=== PATIENT | female | born 1985 | race Caucasian/White ===

== ENCOUNTER 2016-09-09 07:39 | Day surgery (SDC) | payer OTHER ==
[~2016-09-09 07:39] MED LIST: IV START KIT ONE; LACTATED RINGERS 1,000 ML ONE
[2016-09-09] MEDS ORDERED: CEFAZOLIN SODIUM 2 GRAM PREMIX 100 ML IV ONE (09:02)
[2016-09-09] MEDS ORDERED: LIDOCAINE 1% 2 ML VIAL ID PRN (09:03)
[2016-09-09] MEDS ORDERED: CEFAZOLIN SODIUM 2 GRAM DUPLEX 2 G in Premix (D5W) 50 ml 1 EACH IV PRN (09:03)
[2016-09-09] MEDS ORDERED: EPIDURAL PROCEDURE TRAY ONE (09:07)
[2016-09-09] MEDS ORDERED: BUPIVACAINE 0.75% SPINAL AMPUL 2 ML ONE (09:07)
[2016-09-09] MEDS ORDERED: MORPHINE SULFATE (DURAMORPH) 1 MG/ML 10ML AMP ONE (09:13)
[2016-09-09] MEDS ORDERED: PROPOFOL 60 ML IV ONE (09:13)
[2016-09-09] MEDS ORDERED: MIDAZOLAM HCL 5 MG/5 ML VIAL ONE (09:13)
[2016-09-09] MEDS ORDERED: LIDOCAINE 2% (PRES FREE) 5 ML VIAL ONE (09:13)
[2016-09-09] MEDS ORDERED: FENTANYL 100 MCG/2 ML VIAL ONE ×2 (09:14→10:56)
[2016-09-09] MEDS ORDERED: LACTATED RINGERS 1,000 ML IV SCH ×2 (09:15→10:30)
[2016-09-09] MEDS ORDERED: PROPOFOL 20 ML IV ONE ×3 (10:17)
[2016-09-09] MEDS ORDERED: EPHEDRINE SULFATE 50 MG/ML 1ML VIAL IV PRN (10:21)
[2016-09-09] MEDS ORDERED: NALOXONE HCL 0.4 MG/ML VIAL IV PRN ×2 (10:21→10:23)
[2016-09-09] MEDS ORDERED: HYDROMORPHONE HCL 1 MG/ML SYRINGE IV PRN (10:21)
[2016-09-09] MEDS ORDERED: ATROPINE SULFATE 0.4 MG/1 ML VIAL IV PRN (10:23)
[2016-09-09] MEDS ORDERED: ONDANSETRON 4 MG/2ML 2 ML VIAL IV PRN ×2 (10:23→13:15)
[2016-09-09] MEDS ORDERED: PROMETHAZINE HCL 25 MG/ML VIAL IM PRN (10:23)
[2016-09-09] MEDS ORDERED: HYDROMORPHONE HCL 1 MG/ML SYRINGE ONE ×2 (10:40→11:37)
[2016-09-09] MEDS ORDERED: ONDANSETRON 4 MG/2ML 2 ML VIAL ONE (10:41)
[2016-09-09] MEDS: HYDROMORPHONE HCL 1 MG/ML SYRINGE IV PRN ×4 (10:47→11:59)
[2016-09-09] MEDS: FENTANYL 100 MCG/2 ML VIAL IV PRN ×4 (10:58→12:29)
[2016-09-09] MEDS ORDERED: KETOROLAC TROMETHAMINE 30 MG/ML 1 ML VIAL ONE (11:03)
[2016-09-09] MEDS: KETOROLAC TROMETHAMINE 30 MG/ML 1 ML VIAL IV PRN ×2 (11:05→17:33)
--- NOTE | 2016-09-09 12:08 | OP ---
Kiana Sheridan DATE OF SURGERY: 09/09/2016 SURGEON: Patrick Craig MD. TABLE SAW OPERATOR SURGEON: Vita Morales DO. PREOPERATIVE DIAGNOSES: Menorrhagia and dysmenorrhea. POSTOPERATIVE DIAGNOSES: Menorrhagia and dysmenorrhea. OPERATION: Vaginal hysterectomy. ANESTHESIA: Spinal. FINDINGS: Uterus was of normal size. Fallopian tubes and ovaries appeared normal. TECHNICAL PROCEDURE: After induction of satisfactory spinal anesthesia the patient was placed in the supine lithotomy position, prepped and draped in the usual fashion. A weighted speculum was and the cervix was grasped with a double tooth tenaculum. The cul-de-sac was entered posteriorly using Deutsch scissors. The vaginal cuff was then incised circumferentially at this level. The bladder was advanced cephalad and the vesicouterine peritoneum was identified and incised with the Deutsch scissors and a Alberto retractor placed anteriorly. The right uterosacral ligament was clamped with a Karla clamp, divided, and suture ligated with 0 Vicryl. The same procedure was repeated on the left. The left cardinal ligament was clamped with a Karla clamp, divided, and suture ligated with 0 Vicryl. The same procedure was repeated on the right. The right uterine artery was clamped with a Karla clamp, divided and suture ligated with 0 Vicryl. The same procedure was repeated on the left. The left round ligament was clamped with a Karla clamp, divided and suture ligated with 0 Vicryl. The same procedure was repeated on the right. The right uteroovarian ligament and Fallopian tube were crossed clamped with a Karla clamp, clamped, and divided. The same procedure was repeated on the left thus removing the uterus. The pedicles thus created were sutured ligated with 0 Vicryl. When hemostasis in the pedicles was reassured the pedicles were closed with a purse string suture of 0 Vicryl. The vaginal cuff was then closed from side to side using interrupted figure of eight sutures of 0 Vicryl. The patient tolerated the procedure and left the operating room awake and in good condition. There were no complications. Instrument, needle, and sponge counts were correct. Estimated blood los was 100 mL. There was no blood replacement. Specimens removed were the uterus. JOB: [id number]
[2016-09-09] MEDS ORDERED: MAGNESIUM HYDROXIDE/AL HYDROX 30 ML UDCUP PO PRN (13:15)
[2016-09-09] MEDS ORDERED: CLONAZEPAM 0.5 MG TABLET PO PRN (13:15)
[2016-09-09] MEDS ORDERED: ACETAMINOPHEN 325 MG TABLET PO PRN (13:15)
[2016-09-09] MEDS ORDERED: MAG HYDROX/AL HYDROX/SIMETH 30 ML UDCUP PO PRN (13:15)
[2016-09-09] MEDS ORDERED: DOCUSATE SODIUM 100 MG CAPSULE PO PRN (13:15)
[2016-09-09] MEDS ORDERED: ONDANSETRON 4 MG ODT TAB PO PRN (13:15)
[2016-09-09] MEDS ORDERED: BLISTEX LIPSTICK 1 EACH TP PRN (13:15)
[2016-09-09] MEDS ORDERED: RIZATRIPTAN BENZOATE 5 MG PO PRN (13:15)
[2016-09-09] MEDS ORDERED: DIPHENHYDRAMINE HCL 50 MG/1 ML VIAL IV PRN (13:15)
[2016-09-09] MEDS ORDERED: MENTHOL/CETYLPYRD 1 EACH LOZENGE PO PRN (13:15)
[2016-09-09] MEDS: OXYCODONE/ACETAMINOPHEN 5/325 MG TABLET PO PRN ×3 (13:34→19:50)
[2016-09-09] MEDS: D5 1/4NS with 20 mEq KCL 1,000 ML IV SCH ×4 (13:46→21:16)
[2016-09-09] MEDS ORDERED: PUMP TUBING ONE ×2 (14:17→17:07)
[2016-09-09] MEDS ORDERED: LORAZEPAM 2 MG/ML 1ML SDV IV ONE (15:11)
[2016-09-09 18:02] VITALS: BMI 31.6
[2016-09-09] MEDS ORDERED: ZOLPIDEM TARTRATE 5 MG TABLET PO SCH (21:00)
[2016-09-10] MEDS: OXYCODONE/ACETAMINOPHEN 5/325 MG TABLET PO PRN ×3 (00:09→08:42)
[2016-09-10] MEDS: D5 1/4NS with 20 mEq KCL 1,000 ML IV SCH ×2 (04:00→06:51)
[2016-09-10 06:30] LABS: HEMATOCRIT 24.3 % (37.0-47.0); HEMOGLOBIN 8.1 gm/l (12.0-16.0)
[2016-09-10] MEDS: KETOROLAC TROMETHAMINE 30 MG/ML 1 ML VIAL IV PRN (07:23)
[2016-09-10 07:45] VITALS: BP 102/56
--- NOTE | 2016-09-10 08:50 | PDOC5 ---
Hospital Course: ADMIT DATE: 09/09/2016 DISCHARGE DATE: 09/10/2016 ADMISSION DIAGNOSES: Hypermenorrhea and dysmenorrhea PROCEDURES: Vaginal hysterectomy HISTORY OF PRESENT ILLNESS: 31 year old presenting with Heavy flow with menses and severe cramping with menses. HOSPITAL COURSE: The patient on the day of admission underwent a vaginal hysterectomy. Her course was uncomplicated. By day of discharge the patient is ambulating, eating, voiding, and passing flatus without difficulty. Pain is controlled. - Objective General: Afebrile Abdomen: Soft Extremities: Full ROM Skin: Normal Color, Warm, Dry, Intact Neurological: Grossly Intact Psych/Mental Status: Normal Affect - Discharge Plan Condition: Good Disposition: Home Additional Instructions: Maintain pelvic rest. Report if you have heavy bleeding, worsening pain, or a temperature over 100. Prescriptions: Oxycodone HCl [ROXICODONE 5 MG IR TABLET (SHF)] 5 mg PO Q4H PRN #30 tab PRN Reason: Pain Follow-Up: Patrick Craig MD [Staff Physician] - In 2 weeks
[2016-09-10] MEDS ORDERED: PANTOPRAZOLE 40 MG TABLET DR PO SCH (09:00)
[2016-09-10] MEDS ORDERED: D AMPHET PO SCH (09:00)
[2016-09-10] MEDS ORDERED: HYDROCHLOROTHIAZIDE 12.5 MG CAP PO SCH (09:00)
[2016-09-10] MEDS ORDERED: AMPHET PO SCH (09:00)
[2016-09-10] MEDS ORDERED: LISINOPRIL 20 MG TABLET PO SCH (09:00)
[2016-09-10] MEDS ORDERED: AMPHET ASP PO SCH (09:00)
[2016-09-10] MEDS ORDERED: DESVENLAFAXINE SUCCINATE 100 MG PO SCH (09:00)
[2016-09-10] MEDS ORDERED: KETOROLAC TROMETHAMINE 30 MG/ML 1 ML VIAL IV SCH ×2 (10:22→13:30)
[2016-09-10] MEDS ORDERED: HYDROMORPHONE HCL 2 MG/ML SYRINGE IV PRN (10:40)
[2016-09-10] MEDS ORDERED: HYDROMORPHONE HCL 1 MG/ML SYRINGE IV PRN (10:42)
[2016-09-10] MEDS ORDERED: OXYCODONE HCL 5 MG TABLET PO PRN (10:42)
--- NOTE | 2016-09-13 15:19 | SURGPATH ---
[facility] [address] [place] [id number] Patient Name: YENIFER UREÑA MR#: [id number] : 1985 Gender: F Specimen #: [id number] Collected: 09/09/2016 Received: 09/12/2016 Reported: 09/13/2016 Submitting Phys: WHIT FULTON Copy To Phys: JOCELIN GTZ [facility] Clinical History / Pre-Operative Diagnosis: DYSMENORRHEA; MENORRHAGIA Specimen Source / Surgical Procedure Performed: UTERUS WITH CERVIX Interpretation: UTERUS AND CERVIX, HYSTERECTOMY: - CERVIX: NO DIAGNOSTIC ABNORMALITIES - ENDOMETRIUM: PROLIFERATIVE PHASE - MYOMETRIUM: NO DIAGNOSTIC ABNORMALITIES - SEROSA: FOCAL ENDOMETRIOSIS Electronically Signed Out Barbara Calles M.D. Gross Description: The specimen is received in a formalin filled container labeled with the patient's name and "uterus with cervix". A 72 g, intact uterus and cervix is 7.0 x 4.0 x 3.5 cm. The serosa is smooth and clarke. On the central posterior surface is a fibrous encapsulated metallic surgical staple. The ectocervix is smooth and pale pink. The os and endocervical canal are patent. The endometrium is flat, uniform clarke and averages 0.1 cm. The dense clarke myometrium is thickened to 1.7 cm and is without nodule or induration. Summary of sections: A-serosa B-anterior and posterior cervix C and D-anterior endomyometrium E and F-posterior endomyometrium Yong Orozco Microscopic Description: Sections of the serosa shows serosal endometriosis. Sections of the cervix show transformation zone without dysplasia. The endometrium is proliferative. The myometrium is unremarkable. 1: 46910 N80.0
== END 2016-09-10 10:00 | disposition home or self-care (01) ==
LOC: SDC 07:39 → MS 12:45 → SDC 09-10 10:00
PROVIDERS: ATTEND Obstetrics & Gynecology
PROC: 0UT97ZZ Resection of Uterus, Via Natural or Artificial Opening (ICD-10-PCS; principal; 2016-09-09)
PROC: 0UTC7ZZ Resection of Cervix, Via Natural or Artificial Opening (ICD-10-PCS; 2016-09-09)
DX: N92.0 Excessive and frequent menstruation with regular cycle (principal); N94.6 Dysmenorrhea, unspecified; N80.0 Endometriosis of uterus; I10 Essential (primary) hypertension; K21.9 Gastro-esophageal reflux disease without esophagitis; Z87.891 Personal history of nicotine dependence; Z79.899 Other long term (current) drug therapy